=== PATIENT | female | born 1960 | race Caucasian/White ===

== ENCOUNTER 2024-03-14 15:51 | Emergency (ER) | payer BC, MEDICAID, OTHER ==
[~2024-03-14] VITALS: Ht 157.5 cm; Wt 55.0 kg
[~2024-03-14 15:51] MED LIST: BENADRYL; UNKNOWN ANTIBIOTIC
[2024-03-14 15:56] VITALS: BP 118/79; PULSE 75; RESP 18; TEMP 98.2; O2SAT 98
[2024-03-14] MEDS: KETOROLAC 30MG/ML VIAL IM ONE (17:00)
[2024-03-14] MEDS: CYCLOBENZAPRINE 10MG TABLET PO ONE (17:00)
[2024-03-14] MEDS ORDERED: NAPR-1176 MT (17:44)
[2024-03-14] MEDS ORDERED: CYCL10TA21 MT (17:44)
== END 2024-03-14 19:10 | disposition home or self-care (01) ==
LOC: ER 15:51
DX: S30.0XXA Contusion of lower back and pelvis, initial encounter (principal); S40.011A Contusion of right shoulder, initial encounter; M48.061 Spinal stenosis, lumbar region without neurogenic claudication; M51.26 Other intervertebral disc displacement, lumbar region; W18.39XA Other fall on same level, initial encounter; Y93.89 Activity, other specified; Y92.89 Other specified places as the place of occurrence of the external cause; Y99.8 Other external cause status
CPT/HCPCS: 99285; 72131; 73030; 96372; J1885

== ENCOUNTER 2024-09-03 18:50 | Emergency (ER) | payer MEDICAID ==
[~2024-09-03] VITALS: Ht 157.5 cm; Wt 53.5 kg
[~2024-09-03 18:50] MED LIST changes: +CYCL10TA21 MT; +NAPR-1176 MT
[2024-09-03 19:01] VITALS: O2SAT 98
[2024-09-03 19:04] VITALS: BP 133/101; PULSE 113; RESP 16; TEMP 98.4; O2SAT 98
== END 2024-09-03 21:32 ==
LOC: ER 18:50
DX: R07.81 Pleurodynia (principal); M54.2 Cervicalgia; M54.9 Dorsalgia, unspecified; Z53.21 Procedure and treatment not carried out due to patient leaving prior to being seen by health care provider